=== PATIENT | female | born 1990 | race Caucasian/White ===

== ENCOUNTER 2024-05-26 06:14 | Emergency (ER) | payer OTHER, BC ==
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
[2024-05-26] MEDS: ONDANSETRON 4 MG/2 ML VIAL IVP STA (06:37)
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
[2024-05-26] MEDS: SODIUM CHLORIDE 0.9% 1,000 ML IV STA (06:59)
[2024-05-26 07:00] LABS: Basophils % (A) 0 %; Eosinophils # (A) 0.1 k/uL (0-0.7); Eosinophils % (A) 1 %; HCT 41.5 % (34.0-46.0); HGB 13.9 gm/dL (11.4-16.0); Lymphocytes # (A) 2.3 k/uL (1.0-4.8); Lymphocytes % (A) 18 %; MCH 32.7 pg (25.0-35.0); MCHC 33.4 g/dL (31.0-37.0); MCV 97.7 fL (80.0-100.0); Mean Platelet Volume 7.7; Monocytes # (A) 0.4 k/uL (0-1.0); Monocytes % (A) 3 %; Neutrophils # (A) 9.8 k/uL (1.3-7.7); Neutrophils % (A) 77 %; Platelet Count 223 k/uL (150-450); RBC 4.25 m/uL (3.80-5.40); RDW 12.9 % (11.5-15.5); WBC 12.8 k/uL (3.8-10.6)
[2024-05-26] MEDS: SODIUM CHLORIDE 0.9% 500 ML 500 ML IV STA (07:00)
[2024-05-26] MEDS: ACETAMINOPHEN IV (For NPO) 1,000 MG in EMPTY BAG 1 BAG IVPB STA (07:03)
[2024-05-26 07:16] LABS: ALT 23 U/L (4-34); AST 52 U/L (14-36); African American GFR (CKD) >90 (>60 ml/min/1.73 sqM); Alkaline Phosphatase 78 U/L (38-126); Anion Gap 11 mmol/L; Blood Urea Nitrogen 5 mg/dL (7-17); Calcium 8.7 mg/dL (8.4-10.2); Carbon Dioxide 20 mmol/L (22-30); Chloride 110 mmol/L (98-107); Glucose 97 mg/dL (74-99); Non-African American GFR(CKD) >90 (>60 ml/min/1.73 sqM); Potassium 3.7 mmol/L (3.5-5.1); Sodium 141 mmol/L (137-145); Total Bilirubin 0.4 mg/dL (0.2-1.3); Total Protein 6.4 g/dL (6.3-8.2)
[2024-05-26 07:25] LABS: Alcohol 196 mg/dL
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
[2024-05-26 07:30] LABS: Partial Thromboplastin Time 24.1 sec (22.0-30.0); Prothrombin Time 11.1 sec (10.0-12.5)
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
[2024-05-26] MEDS ORDERED: NALOXONE 0.4 MG/ML 1 ML VIAL IV PRN (08:20)
[2024-05-26] MEDS: DIPH,PERTUS(ACELL)TETVAC-LF 0.5 ML VIAL IM ONE (08:29)
[2024-05-26] MEDS: SODIUM CHLORIDE 0.9% 1,000 ML IV SCH (08:50)
[2024-05-26 08:56] LABS: Amphetamine Screen,Urine Not Detected (NotDetected); Barbiturate Screen,Urine Not Detected (NotDetected); Benzodiazepines Screen,Urine Not Detected (NotDetected); Cocaine Screen,Urine Not Detected (NotDetected); Methadone Screen, Urine Not Detected (NotDetected); Opiate Screen,Urine Not Detected (NotDetected); Oxycodone Screen, Urine Not Detected (NotDetected); Phencyclidine Screen,Urine Not Detected (NotDetected); Tricyclic Antidepressant,Urine Not Detected (NotDetected); Urn Cannabinoid Scrn Not Detected (NotDetected)
[2024-05-26] MEDS ORDERED: IOPAMIDOL CONTRAST (ORAL USE) VIAL PO PRN (09:30)
[2024-05-26] MEDS: MORPHINE SULFATE 4 MG/ML SYRINGE IVP STA (09:40)
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
[2024-05-26] MEDS: HYDROmorphone 1 MG/ML 1 ML SYRINGE IVP STA ×2 (11:08→13:00)
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
[2024-05-26] MEDS: KETOROLAC 15 MG/ML 1 ML VIAL IVP SCH (12:16)
[2024-05-26] MEDS: ONDANSETRON 4 MG/2 ML VIAL IVP PRN (13:25)
[2024-05-26 14:03] VITALS: BP 139/72; PULSE 101; RESP 14; TEMP 98.6
--- NOTE | 2024-05-26 14:03 | P.PN ---
Progress Note - Text Progress Note Date: 05/26/24 Additional diagnostic studies with results demonstrate new/missed injury mesenteric hematoma of the right lower quadrant. 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 Additional new injuries identified on CT abdomen pelvis including L1 transverse process fracture. Patient reports difficulty with pain management due to rapid metabolism of pain medication. Patient complaining of moderate chest pain. CT chest at this time had been unremarkable. Due to her high risk and pre-existing condition of Erler's Danlos and need for surgical intervention, patient transferred to higher level of care. Shared decision making performed with patient and also discussed with emergency room provider for transfer.
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
== END 2024-05-26 14:02 | disposition other institution (70) ==
LOC: EC 06:14 → 6NMEDSUR 08:20 → UNDOADMOB 08:20 → 6NMEDSUR 09:05 → EC 14:02
DX: O9A.211 Injury, poisoning and certain other consequences of external causes complicating pregnancy, first trimester (principal); S30.1XXA Contusion of abdominal wall, initial encounter; O99.331 Smoking (tobacco) complicating pregnancy, first trimester; F17.200 Nicotine dependence, unspecified, uncomplicated; Z88.1 Allergy status to other antibiotic agents; Z88.2 Allergy status to sulfonamides; Z88.8 Allergy status to other drugs, medicaments and biological substances; Z23 Encounter for immunization; V49.40XA Driver injured in collision with unspecified motor vehicles in traffic accident, initial encounter; Y92.410 Unspecified street and highway as the place of occurrence of the external cause; Z3A.08 8 weeks gestation of pregnancy
CPT/HCPCS: 36415; 93005; 86900; 86901; 80053; 84484; 85025; 85610; 85730; 86850; 81025; 84702; 80306; 80320; 72170; 71045; 76801; 76817; 72125; 70486; 70450; 71260; 74176; 74177; 90715; 99285; 96365; 96375 ×4; 96376 ×2; 96361 ×5; 90471; G0390; J2270; J2405; J1170; J0131; J1885; Q9967